=== PATIENT | male | born 1985 | race American Indian/Alaskan Native ===

== ENCOUNTER 2016-11-07 23:19 | Emergency (ER) | payer SELFPAY ==
[2016-11-08 00:04] LABS: Basophils % (Auto) 0.6 % (0.0-1.8); Eosinophils % (Auto) 8.3 % (0.0-4.3); Hematocrit 38.4 % (35.5-45.6); Mean Corpuscular HGB Conc 34 % (32-34); Mean Corpuscular Hemoglobin 33 pg (28-32); Mean Corpuscular Volume 96 fl (84-94); Platelet Count 137 K/mm3 (140-440); Red Cell Distribution Width 12.6 % (13.2-15.2); White Blood Count 6.4 K/mm3 (4.5-11.0)
[2016-11-08 00:18] LABS: Anion Gap 16 mmol/L; BUN/Creatinine Ratio 14.44; Blood Urea Nitrogen 13 mg/dL (9-20); Calcium 8.5 mg/dL (8.4-10.2); Carbon Dioxide 25 mmol/L (22-30); Glucose 142 mg/dL (75-100); Potassium 3.9 mmol/L (3.6-5.0); Sodium 140 mmol/L (137-145)
--- NOTE | 2016-11-08 09:12 | Emergency Department Report ---
ED Chest Pain HPI - General Chief Complaint: Chest Pain Stated Complaint: CHEST PAIN Time Seen by Provider: 11/08/16 09:10 Source: patient, RN notes reviewed Mode of arrival: Ambulatory Limitations: No Limitations - History of Present Illness Initial Comments: This is a 30-year-old male. He is previously unknown to me. He presents to the ER complaining of chest pain. The chest pain is left-sided. It has been present for 2 weeks. He reports that the pain is not associated with nausea, vomiting, diaphoresis or shortness of breath. There is no hematemesis or bright red blood per rectum. There is no posterior leg pain, no posterior leg swelling, patient does not take oral control contraceptives, and there are no recent trips or hospitalizations. He reports that the pain starts in the chest, and radiates down his left arm, left flank, left leg, and then rotates up in a counterclockwise direction, moving up his right leg, right flank, then his right arm. This is been intermittent for the past few weeks. It has no exacerbating or relieving factors. The patient smokes cigarettes, but does not use cocaine and has not taken aspirin in the past 7 days. MD Complaint: chest pain -: Gradual, week(s) Onset: during rest Pain Location: left chest Pain Radiation: other (as noted) Severity scale (0 -10): 7 Quality: aching Consistency: intermittent Improves With: nothing Worsens With: nothing re: denies: nausea, vomting, diaphoresis, dyspnea, sense of impending doom Other Symptoms: denies: cough, fever, syncope Treatments Prior to Arrival: none Aspirin use within the Past 7 Days: (0) No - Related Data On Oral Contraceptives: No Previous Rx's Medication Instructions Recorded Last Taken Type Acetaminophen [Tylenol Arthritis] 650 mg PO Q6HR PRN #30 tablet.er 11/08/16 Unknown Rx Famotidine [Pepcid] 20 mg PO QDAY #30 tablet 11/08/16 Unknown Rx Sucralfate [Carafate] 1 gm PO Q6HR #120 tablet 11/08/16 Unknown Rx Allergies Allergy/AdvReac Type Severity Reaction Status Date / Time No Known Allergies Allergy Verified 11/08/16 09:28 Heart Score - HEART Score History: Slightly suspicious EKG: Normal Age: < 45 Risk factors: No known risk factors Troponin: < normal limit HEART Score: 0 - Critical Actions Critical Actions: 0-3 pts:0.9-1.7%risk of adverse cardiac event.Candidate for discharge ED Review of Systems ROS: Stated complaint: CHEST PAIN Other details as noted in HPI Constitutional: denies: fever Eyes: denies: vision change ENT: denies: epistaxis Respiratory: denies: cough Cardiovascular: chest pain Gastrointestinal: denies: vomiting Genitourinary: as per HPI Musculoskeletal: as per HPI. denies: arthralgia, myalgia Skin: denies: lesions Neurological: denies: weakness Psychiatric: as per HPI ED Past Medical Hx - Past Medical History Previous Medical History?: No - Surgical History Past Surgical History?: No - Social History Smoking Status: Current Every Day Smoker Substance Use Type: Marijuana - Medications Home Medications: Home Medications Medication Instructions Recorded Confirmed Last Taken Type Acetaminophen [Tylenol Arthritis] 650 mg PO Q6HR PRN #30 tablet.er 11/08/16 Unknown Rx Famotidine [Pepcid] 20 mg PO QDAY #30 tablet 11/08/16 Unknown Rx Sucralfate [Carafate] 1 gm PO Q6HR #120 tablet 11/08/16 Unknown Rx ED Physical Exam - General Limitations: No Limitations General appearance: alert, in no apparent distress - Head Head exam: Present: atraumatic, normocephalic - Eye Eye exam: Present: normal appearance, EOMI. Absent: nystagmus - ENT ENT exam: Present: normal exam, normal orophraynx, mucous membranes moist, normal external ear exam - Neck Neck exam: Present: normal inspection, full ROM. Absent: tenderness, meningismus - Respiratory Respiratory exam: Present: normal lung sounds bilaterally. Absent: respiratory distress, wheezes, rales, rhonchi, stridor, chest wall tenderness, accessory muscle use, decreased breath sounds, prolonged expiratory - Cardiovascular Cardiovascular Exam: Present: regular rate, normal rhythm, normal heart sounds. Absent: bradycardia, tachycardia, irregular rhythm, systolic murmur, diastolic murmur, rubs, gallop - GI/Abdominal GI/Abdominal exam: Present: soft, normal bowel sounds. Absent: distended, tenderness, guarding, rebound, rigid, pulsatile mass - Rectal Rectal exam: Present: deferred - Extremities Exam Extremities exam: Present: normal inspection, full ROM, normal capillary refill , other (the compartments are soft. 2+ pulses are noted in 4 extremities.). Absent: tenderness, pedal edema, joint swelling, calf tenderness - Back Exam Back exam: Present: normal inspection, full ROM. Absent: tenderness, CVA tenderness (R), CVA tenderness (L), muscle spasm, paraspinal tenderness, vertebral tenderness - Neurological Exam Neurological exam: Present: alert, oriented X3, normal gait, other (Extraocular movements intact. Tongue midline. No facial droop. Facial sensation intact to light touch in the V1, V2, V3 distribution bilaterally. 5 and 5 strength in 4 extremities.. Sensation is intact to light touch in 4 extremities.). Absent : motor sensory deficit - Psychiatric Psychiatric exam: Present: anxious - Skin Skin exam: Present: warm, dry, intact, normal color. Absent: rash ED Course Vital Signs 11/07/16 11/08/16 11/08/16 23:37 05:03 08:28 Temperature 98.7 F Pulse Rate 79 71 Respiratory 20 20 12 Rate Blood Pressure 124/68 131/70 Blood Pressure 124/68 [Left] O2 Sat by Pulse 99 100 Oximetry 11/08/16 11/08/16 11/08/16 08:29 08:30 08:31 Temperature Pulse Rate 62 67 57 L Respiratory 12 14 13 Rate Blood Pressure 116/64 116/64 Blood Pressure [Left] O2 Sat by Pulse 100 100 100 Oximetry 11/08/16 11/08/16 11/08/16 08:33 08:35 08:37 Temperature Pulse Rate 59 L 62 Respiratory 13 16 15 Rate Blood Pressure 116/64 116/64 116/64 Blood Pressure [Left] O2 Sat by Pulse 100 100 100 Oximetry 11/08/16 11/08/16 11/08/16 08:39 08:41 08:43 Temperature Pulse Rate Respiratory 15 13 12 Rate Blood Pressure 116/64 116/64 116/64 Blood Pressure [Left] O2 Sat by Pulse 100 100 100 Oximetry 11/08/16 11/08/16 11/08/16 08:45 08:47 08:49 Temperature Pulse Rate 53 L 57 L 58 L Respiratory 13 12 14 Rate Blood Pressure 116/64 116/64 116/64 Blood Pressure [Left] O2 Sat by Pulse 100 100 100 Oximetry 11/08/16 11/08/16 11/08/16 08:51 08:53 08:55 Temperature Pulse Rate 54 L 53 L 56 L Respiratory 13 13 15 Rate Blood Pressure 116/64 116/64 116/64 Blood Pressure [Left] O2 Sat by Pulse 100 100 100 Oximetry 11/08/16 11/08/16 11/08/16 08:57 08:59 09:01 Temperature Pulse Rate 57 L 53 L 52 L Respiratory 15 14 14 Rate Blood Pressure 116/64 116/64 106/60 Blood Pressure [Left] O2 Sat by Pulse 100 100 98 Oximetry 11/08/16 11/08/16 09:03 09:05 Temperature Pulse Rate 55 L 51 L Respiratory 14 15 Rate Blood Pressure 106/60 106/60 Blood Pressure [Left] O2 Sat by Pulse 100 100 Oximetry THOMAS score - Thomas Score Age > 65: (0) No Aspirin use within the Past 7 Days: (0) No 3 or more CAD Risk Factors: (0) No 2 or more Angina events in past 24 hrs: (0) No Known CAD with more than 50% Stenosis: (0) No Elevated Cardiac Markers: (0) No ST Deviation Greater than 0.5mm: (0) No THOMAS Score: 0 ED Medical Decision Making - Lab Data Result diagrams: 11/07/16 23:45 11/07/16 23:45 Vital Signs 11/07/16 11/08/16 11/08/16 23:37 05:03 08:28 Temperature 98.7 F Pulse Rate 79 71 Respiratory 20 20 12 Rate Blood Pressure 124/68 131/70 Blood Pressure 124/68 [Left] O2 Sat by Pulse 99 100 Oximetry 11/08/16 11/08/16 11/08/16 08:29 08:30 08:31 Temperature Pulse Rate 62 67 57 L Respiratory 12 14 13 Rate Blood Pressure 116/64 116/64 Blood Pressure [Left] O2 Sat by Pulse 100 100 100 Oximetry 11/08/16 11/08/16 11/08/16 08:33 08:35 08:37 Temperature Pulse Rate 59 L 62 Respiratory 13 16 15 Rate Blood Pressure 116/64 116/64 116/64 Blood Pressure [Left] O2 Sat by Pulse 100 100 100 Oximetry 11/08/16 11/08/16 11/08/16 08:39 08:41 08:43 Temperature Pulse Rate Respiratory 15 13 12 Rate Blood Pressure 116/64 116/64 116/64 Blood Pressure [Left] O2 Sat by Pulse 100 100 100 Oximetry 11/08/16 11/08/16 11/08/16 08:45 08:47 08:49 Temperature Pulse Rate 53 L 57 L 58 L Respiratory 13 12 14 Rate Blood Pressure 116/64 116/64 116/64 Blood Pressure [Left] O2 Sat by Pulse 100 100 100 Oximetry 11/08/16 11/08/16 11/08/16 08:51 08:53 08:55 Temperature Pulse Rate 54 L 53 L 56 L Respiratory 13 13 15 Rate Blood Pressure 116/64 116/64 116/64 Blood Pressure [Left] O2 Sat by Pulse 100 100 100 Oximetry 11/08/16 11/08/16 11/08/16 08:57 08:59 09:01 Temperature Pulse Rate 57 L 53 L 52 L Respiratory 15 14 14 Rate Blood Pressure 116/64 116/64 106/60 Blood Pressure [Left] O2 Sat by Pulse 100 100 98 Oximetry 11/08/16 11/08/16 09:03 09:05 Temperature Pulse Rate 55 L 51 L Respiratory 14 15 Rate Blood Pressure 106/60 106/60 Blood Pressure [Left] O2 Sat by Pulse 100 100 Oximetry Labs 11/07/16 11/07/16 11/08/16 23:45 23:45 04:03 WBC 6.4 RBC 4.00 Hgb 13.0 Hct 38.4 MCV 96 H MCH 33 H MCHC 34 RDW 12.6 L Plt Count 137 L Lymph % (Auto) 36.5 H [place] % (Auto) 7.9 H Eos % (Auto) 8.3 H Baso % (Auto) 0.6 Lymph # 2.3 [place] # 0.5 Eos # 0.5 H Baso # 0.0 Seg Neutrophils % 46.7 Seg Neutrophils # 3.0 Sodium 140 Potassium 3.9 Chloride 103.0 Carbon Dioxide 25 Anion Gap 16 BUN 13 Creatinine 0.9 Estimated GFR > 60 BUN/Creatinine Ratio 14.44 Glucose 142 H Calcium 8.5 Troponin T < 0.010 < 0.010 11/08/16 05:31 WBC RBC Hgb Hct MCV MCH MCHC RDW Plt Count Lymph % (Auto) [place] % (Auto) Eos % (Auto) Baso % (Auto) Lymph # [place] # Eos # Baso # Seg Neutrophils % Seg Neutrophils # Sodium Potassium Chloride Carbon Dioxide Anion Gap BUN Creatinine Estimated GFR BUN/Creatinine Ratio Glucose Calcium Troponin T < 0.010 - EKG Data -: EKG Interpreted by Me EKG shows normal: sinus rhythm, axis, intervals, QRS complexes, ST-T waves - EKG Data Interpretation: no acute changes, normal EKG, unchanged when compared t 11/08/16 10:14 EKG #1 demonstrates normal sinus, 70 beats per minute, normal intervals, normal axis, morphologically consistent with STEMI, there is no prior for comparison. Repeat EKG demonstrates sinus bradycardia, 55 bpm, normal intervals, normal axis , not morphologically consistent with STEMI. High left ventricular voltages noted. - Radiology Data Radiology results: report reviewed, image reviewed - Medical Decision Making Differential diagnosis: GERD, gastritis, costochondritis, pneumonia, pericarditis, myocarditis, pneumothorax, hemothorax Assessment and plan: 30-year-old male with 2 weeks of atypical chest pain. He is afebrile with reassuring vital signs, has 2+ pulses in 4 extremities, and normal chest x-ray. Troponins negative 3. EKG morphologically within normal limits 2. Low risk by THOMAS score, low risk by heart score, low risk by well's criteria, perc negative. Patient at very low risk for major adverse cardiac event. Bedside ultrasound demonstrates normal wall motion, no large effusions. [place] improved after symptomatic therapy. It does not appear to be any emergent condition at this time, the patient is suitable to follow-up with an outpatient primary care doctor or conservation science officer. He will be discharged at this time. Critical care attestation.: If time is entered above; I have spent that time in minutes in the direct care of this critically ill patient, excluding procedure time. ED Disposition Clinical Impression: Chest pain Disposition: DC-01 TO HOME OR SELFCARE Is pt being admited?: No Does the pt Need Aspirin: No Condition: Good Instructions: Chest Pain (ED) Additional Instructions: Take pain medications as directed. Follow up with either primary care or cardiology within the next week. Return to the ER right away with new pain, worsened pain, migration of pain, fevers or chills, confusion, intractable nausea or vomiting, inability to tolerate liquid feeds, right red blood per rectum, black tarry stool. Prescriptions: Acetaminophen [Tylenol Arthritis] 650 mg PO Q6HR PRN #30 tablet.er PRN Reason: Pain Famotidine [Pepcid] 20 mg PO QDAY #30 tablet Sucralfate [Carafate] 1 gm PO Q6HR #120 tablet Referrals: PRIMARY CARE, [Primary Care Provider] - 3-5 Days JOANNE MELENDEZ MD [Staff Physician] - 3-5 Days CHRISTIE ROJAS MD [Staff Physician] - 3-5 Days PAULIE MITCHELL MD [Staff Physician] - 3-5 Days Forms: Work/School Release Form(ED)
[2016-11-08 09:15] VITALS: BP 106/60
[2016-11-08] MEDS ORDERED: ALUM-MAG HYDROX-SIMETH 200-200-20MG/5ML PO ONE (09:22)
[2016-11-08] MEDS ORDERED: TYLENOL PO ONE (09:22)
[2016-11-08] MEDS ORDERED: PEPCID PO ONE (09:22)
--- NOTE | 2016-11-08 09:41 | XRay Report ---
ROUTINE CHEST, TWO VIEWS: Chest pain. PA and lateral views demonstrate the heart and mediastinal contour to be of normal size and shape. The lungs are clear and fully expanded and the soft tissues and bony structures are normal. IMPRESSION: Normal study.
[2016-11-08] MEDS ORDERED: CARAFATE PO ONE (10:00)
== END 2016-11-08 10:47 | disposition home or self-care (01) ==
LOC: ED 23:19
DX: R07.9 Chest pain, unspecified (principal); F17.200 Nicotine dependence, unspecified, uncomplicated; F12.10 Cannabis abuse, uncomplicated
CPT/HCPCS: 36415; 71020; 80048; 84484; 85025; 93005; 93010; 99285

== ENCOUNTER 2016-11-30 00:23 | Emergency (ER) | payer SELFPAY ==
[2016-11-30] MEDS ORDERED: REGLAN ONE (00:44)
[2016-11-30] MEDS ORDERED: REGLAN IV ONE (00:54)
[2016-11-30 01:23] LABS: Basophils % (Auto) 0.4 % (0.0-1.8); Eosinophils % (Auto) 5.5 % (0.0-4.3); Hematocrit 41.2 % (35.5-45.6); Hemoglobin 13.7 gm/dl (11.8-15.2); Mean Corpuscular HGB Conc 33 % (32-34); Mean Corpuscular Hemoglobin 32 pg (28-32); Mean Corpuscular Volume 97 fl (84-94); Platelet Count 146 K/mm3 (140-440); Red Blood Count 4.25 M/mm3 (3.65-5.03); Red Cell Distribution Width 12.8 % (13.2-15.2); White Blood Count 9.3 K/mm3 (4.5-11.0)
[2016-11-30 01:38] LABS: Alanine Aminotransferase 10 units/L (7-56); Albumin/Globulin Ratio 1.4 %; Alkaline Phosphatase 47 units/L (35-129); Anion Gap 13 mmol/L; Blood Urea Nitrogen 12 mg/dL (9-20); Calcium 8.3 mg/dL (8.4-10.2); Carbon Dioxide 26 mmol/L (22-30); Chloride 104.7 mmol/L (98-107); Glucose 121 mg/dL (75-100); Lipase 32 units/L (13-60); Potassium 3.8 mmol/L (3.6-5.0); Sodium 140 mmol/L (137-145); Total Protein 6.9 g/dL (6.3-8.2)
[2016-11-30 02:57] LABS: Bilirubin,Urine NEG (Negative); Blood,Urine NEG (Negative); Ketones,Urine NEG (Negative); Leukocyte Esterase,Urine TR (Negative); Mucus,Urine 3+ /HPF; Nitrite,Urine NEG (Negative); Protein,Urine <15 mg/dL mg/dL (Negative)
[2016-11-30 04:38] VITALS: BP 116/71
--- NOTE | 2016-11-30 04:38 | Cat Scan Report ---
FINAL REPORT EXAM: CT HEAD/BRAIN WO CON HISTORY: headache, blurred vision, N V TECHNIQUE: CT imaging acquired through the head without intravenous contrast. Transaxial reformations are provided. PRIORS: None. FINDINGS: The ventricles, cisterns and sulci are normal. No intraparenchymal or extra-axial mass, hemorrhage, or mass effect. Lopez and white-matter differentiation is normal. Normal spherical shape of the globes. Paranasal sinuses and mastoid air cells are without significant abnormality. No skull or facial fracture visualized. IMPRESSION: No acute intracranial abnormality.
[2016-11-30] MEDS ORDERED: TORADOL ONE (04:42)
[2016-11-30] MEDS ORDERED: TORADOL IV ONE (04:49)
[2016-11-30] MEDS ORDERED: NACL 0.9% 1000 ML 1,000 ML IV ONE (07:20)
[2016-11-30] MEDS ORDERED: ROCEPHIN/NS 1 GM/50 ML 1 GM/50 ML BAG IV ONE (07:20)
--- NOTE | 2016-11-30 07:59 | Cat Scan Report ---
FINAL REPORT EXAM: CT ABDOMEN PELVIS WO CON HISTORY: lower abdominal pain TECHNIQUE: CT images obtained through the Abdomen and Pelvis without contrast. Transaxial,coronal and sagittal reformats are provided. PRIORS: None. FINDINGS: Imaged intrathoracic contents are unremarkable. Kidneys are normal in size, axis and position. No hydronephrosis or nephrolithiasis. The ureters are normal in course and caliber. No stones are seen within the urinary bladder. The liver, gallbladder, pancreas, spleen, and adrenal glands demonstrate a normal noncontrast appearance. Hollow enteric organs are normal in course and caliber. Appendix is normal. No intra-abdominal free air/fluid or lymphadenopathy. Aorta is normal in course and caliber. Superficial soft tissues are unremarkable. No acute or aggressive appearing skeletal findings. IMPRESSION: No CT evidence of obstructive uropathy or other acute abdominal or pelvic finding.
--- NOTE | 2016-11-30 08:26 | Emergency Department Report ---
ED General Adult HPI - General Chief complaint: Abdominal Pain Stated complaint: HEADACHE Time Seen by Provider: 11/30/16 07:09 Source: patient Mode of arrival: Ambulatory Limitations: No Limitations - History of Present Illness Initial comments: Patient comes into the ER today with multiple complaints. Patient complaining of lower back pain for the past month. Denies any obvious injury but does state that the pain is worse with movement. Patient states the pain sometimes seems to radiate down into bilateral buttocks and upper posterior legs. Patient also complaining of bad of lower abdominal pain bilaterally. Patient denies any dysuria, penile discharge. Patient states that he started having some diarrhea yesterday. Patient still able to eat and drink without difficulties. Patient notes that there does seem to be a little correlation with when his belly is hurting that his back is hurting as well. Patient also complaining of a headache. Patient denies any vision changes, hemoptysis, cough. Patient states that he was unable to work last night. Severity scale (0 -10): 6 - Related Data Previous Rx's Medication Instructions Recorded Last Taken Type Acetaminophen [Tylenol Arthritis] 650 mg PO Q6HR PRN #30 tablet.er 11/08/16 1 Day Ago Rx Famotidine [Pepcid] 20 mg PO QDAY #30 tablet 11/08/16 1 Day Ago Rx Sucralfate [Carafate] 1 gm PO Q6HR #120 tablet 11/08/16 1 Day Ago Rx Azithromycin [Zithromax TAB] 500 mg PO QDAY #5 tablet 11/30/16 Unknown Rx Cyclobenzaprine HCl [Flexeril 5 MG 5 mg PO TID #15 tab 11/30/16 Unknown Rx TAB] Promethazine /Codeine 5 ml PO Q6H PRN #90 ml 11/30/16 Unknown Rx [Phenergan/Codeine 6.25-10 mg/5Ml] Allergies Allergy/AdvReac Type Severity Reaction Status Date / Time No Known Allergies Allergy Verified 11/08/16 09:28 ED Review of Systems ROS: Stated complaint: HEADACHE Other details as noted in HPI Constitutional: denies: chills, fever Eyes: denies: eye pain, eye discharge, vision change ENT: denies: ear pain, throat pain Respiratory: denies: cough, shortness of breath, wheezing Cardiovascular: denies: chest pain, palpitations Endocrine: no symptoms reported Gastrointestinal: abdominal pain, diarrhea. denies: nausea, vomiting, constipation, hematemesis, melena, hematochezia Genitourinary: denies: urgency, dysuria, frequency, hematuria, discharge, testicular pain Musculoskeletal: back pain. denies: joint swelling, arthralgia Skin: denies: rash, lesions Neurological: headache. denies: weakness, paresthesias Psychiatric: denies: anxiety, depression Hematological/Lymphatic: denies: easy bleeding, easy bruising ED Past Medical Hx - Past Medical History Previous Medical History?: Yes Hx Heart Attack/AMI: Yes Additional medical history: Stomach Pain - Surgical History Past Surgical History?: No - Social History Smoking Status: Current Every Day Smoker Substance Use Type: Alcohol, Marijuana - Medications Home Medications: Home Medications Medication Instructions Recorded Confirmed Last Taken Type Acetaminophen [Tylenol Arthritis] 650 mg PO Q6HR PRN #30 tablet.er 11/08/16 1 Day Ago Rx Famotidine [Pepcid] 20 mg PO QDAY #30 tablet 11/08/16 11/30/16 1 Day Ago Rx Sucralfate [Carafate] 1 gm PO Q6HR #120 tablet 11/08/16 11/30/16 1 Day Ago Rx Azithromycin [Zithromax TAB] 500 mg PO QDAY #5 tablet 11/30/16 Unknown Rx Cyclobenzaprine HCl [Flexeril 5 MG 5 mg PO TID #15 tab 11/30/16 Unknown Rx TAB] Promethazine /Codeine 5 ml PO Q6H PRN #90 ml 11/30/16 Unknown Rx [Phenergan/Codeine 6.25-10 mg/5Ml] ED Physical Exam - General Limitations: No Limitations General appearance: alert, in no apparent distress - Head Head exam: Present: atraumatic, normocephalic, normal inspection - Eye Eye exam: Present: normal appearance, PERRL, EOMI. Absent: conjunctival injection, periorbital swelling, periorbital tenderness Pupils: Present: normal accommodation - ENT ENT exam: Present: normal exam, normal orophraynx, mucous membranes moist, TM's normal bilaterally, normal external ear exam - Neck Neck exam: Present: normal inspection, tenderness (mild right greater than left posterior trapezius and muscle tenderness. No vertebral body tenderness noted.) , full ROM. Absent: meningismus, lymphadenopathy, thyromegaly - Respiratory Respiratory exam: Present: normal lung sounds bilaterally. Absent: respiratory distress, chest wall tenderness, accessory muscle use, decreased breath sounds - Cardiovascular Cardiovascular Exam: Present: regular rate, normal rhythm, normal heart sounds. Absent: systolic murmur, diastolic murmur, rubs, gallop - GI/Abdominal GI/Abdominal exam: Present: soft, tenderness (right lower and left lower abdominal tenderness), hyperactive bowel sounds. Absent: distended, guarding, rebound, organomegaly, mass - Rectal Rectal exam: Present: deferred - Extremities Exam Extremities exam: Present: normal inspection, normal capillary refill. Absent: pedal edema, joint swelling, calf tenderness - Back Exam Back exam: Present: normal inspection, tenderness (lower lumbar lateral tenderness over the muscle tissue as well as bilateral SI joints.), paraspinal tenderness. Absent: CVA tenderness (R), CVA tenderness (L), vertebral tenderness, rash noted - Neurological Exam Neurological exam: Present: alert, oriented X3, CN II-XII intact, normal gait, reflexes normal. Absent: motor sensory deficit - Psychiatric Psychiatric exam: Present: normal affect, normal mood - Skin Skin exam: Present: warm, dry, intact, normal color. Absent: rash ED Course Vital Signs 11/30/16 11/30/16 11/30/16 00:55 04:36 05:19 Temperature 98.1 F 98.0 F Pulse Rate 92 H 67 Respiratory 16 16 Rate Blood Pressure 115/78 116/71 O2 Sat by Pulse 99 100 Oximetry 11/30/16 08:31 Temperature Pulse Rate Respiratory 16 Rate Blood Pressure O2 Sat by Pulse Oximetry ED Medical Decision Making - Lab Data Result diagrams: 11/30/16 00:50 11/30/16 00:50 Lab Results 11/30/16 11/30/16 11/30/16 Range/Units 00:50 00:50 02:40 WBC 9.3 (4.5-11.0) K/mm3 RBC 4.25 (3.65-5.03) M/mm3 Hgb 13.7 (11.8-15.2) gm/dl Hct 41.2 (35.5-45.6) % MCV 97 H (84-94) fl MCH 32 (28-32) pg MCHC 33 (32-34) % RDW 12.8 L (13.2-15.2) % Plt Count 146 (140-440) K/mm3 Lymph % (Auto) 23.3 (13.4-35.0) % [place] % (Auto) 6.3 (0.0-7.3) % Eos % (Auto) 5.5 H (0.0-4.3) % Baso % (Auto) 0.4 (0.0-1.8) % Lymph # 2.2 (1.2-5.4) K/mm3 [place] # 0.6 (0.0-0.8) K/mm3 Eos # 0.5 H (0.0-0.4) K/mm3 Baso # 0.0 (0.0-0.1) K/mm3 Seg Neutrophils % 64.5 (40.0-70.0) % Seg Neutrophils # 6.0 (1.8-7.7) K/mm3 Sodium 140 (137-145) mmol/L Potassium 3.8 (3.6-5.0) mmol/L Chloride 104.7 (98-107) mmol/L Carbon Dioxide 26 (22-30) mmol/L Anion Gap 13 mmol/L BUN 12 (9-20) mg/dL Creatinine 1.0 (0.8-1.5) mg/dL Estimated GFR > 60 ml/min BUN/Creatinine Ratio 12.00 % Glucose 121 H (75-100) mg/dL Calcium 8.3 L (8.4-10.2) mg/dL Total Bilirubin 0.50 (0.1-1.2) mg/dL AST 15 (5-40) units/L ALT 10 (7-56) units/L Alkaline Phosphatase 47 (35-129) units/L Total Protein 6.9 (6.3-8.2) g/dL Albumin 4.0 (3.9-5) g/dL Albumin/Globulin Ratio 1.4 % Lipase 32 (13-60) units/L Urine Color Yellow (Yellow) Urine Turbidity Clear (Clear) Urine pH 6.0 (5.0-7.0) Ur Specific [place] 1.028 (1.003-1.030) Urine Protein <15 mg/dl (Negative) mg/dL Urine Glucose (UA) Neg (Negative) mg/dL Urine Ketones Neg (Negative) mg/dL Urine Blood Neg (Negative) Urine Nitrite Neg (Negative) Urine Bilirubin Neg (Negative) Urine Urobilinogen 2.0 (<2.0) mg/dL Ur Leukocyte Esterase Tr (Negative) Urine WBC (Auto) 5.0 (0.0-6.0) /HPF Urine RBC (Auto) 5.0 (0.0-6.0) /HPF U Epithel Cells (Auto) < 1.0 (0-13.0) /HPF Calcium Oxalate Crystal 2+ Urine Mucus 3+ /HPF - Radiology Data Radiology results: report reviewed CT head without contrast: No acute pathology noted. CT abdomen/pelvis without contrast: No CT evidence of obstructive uropathy or other acute abdominal or pelvic findings. - Medical Decision Making Patient is nontoxic and hemodynamically stable. The patient might possibly be suffering from on multiple issues. Patient's back pain seems to be more musculoskeletal in nature. I believe the patient's abdominal discomfort may be related to UTI. Patient was given IV fluids, Toradol, Rocephin here in the ER. Patient states that the Toradol did seem to help some with his headache. I will continue patient on outpatient antibiotics as well as some medications to settle his stomach. I encouraged patient to continue drinking plenty of fluids and patient is to follow-up with his primary care doctor to ensure resolution of urinary tract infection. Patient is in agreement with treatment plan patient is stable for discharge. Critical care attestation.: If time is entered above; I have spent that time in minutes in the direct care of this critically ill patient, excluding procedure time. ED Disposition Clinical Impression: Low back pain, UTI (urinary tract infection), Diarrhea, Headache Disposition: DC- TO HOME OR SELFCARE Is pt being admited?: No Does the pt Need Aspirin: No Condition: Good Instructions: Urinary Tract Infection in Men (ED), Gastroenteritis (ED), Low Back Strain (ED) Prescriptions: Azithromycin [Zithromax TAB] 500 mg PO QDAY #5 tablet Cyclobenzaprine HCl [Flexeril 5 MG TAB] 5 mg PO TID #15 tab Promethazine /Codeine [Phenergan/Codeine 6.25-10 mg/5Ml] 5 ml PO Q6H PRN #90 ml PRN Reason: Diarrhea Referrals: PRIMARY CARE, [Primary Care Provider] - 3-5 Days [facility] [Outside] - 3-5 Days Forms: Work/School Release Form(ED) Time of Disposition: 09:48
== END 2016-11-30 10:02 | disposition home or self-care (01) ==
LOC: ED 00:23
DX: M54.5 Low back pain (principal); N39.0 Urinary tract infection, site not specified; R19.7 Diarrhea, unspecified; R51 Headache; F17.200 Nicotine dependence, unspecified, uncomplicated; I25.2 Old myocardial infarction; F12.10 Cannabis abuse, uncomplicated
CPT/HCPCS: 36415; 70450; 74176; 80053; 81001; 83690; 85025; 96365; 96375; 99284; J0696; J1885; J2765; J7030

== ENCOUNTER 2016-12-21 02:18 | Emergency (ER) | payer OTHER ==
[2016-12-21 02:39] LABS: Basophils % (Auto) 0.5 % (0.0-1.8); Hematocrit 41.6 % (35.5-45.6); Hemoglobin 14.2 gm/dl (11.8-15.2); Mean Corpuscular HGB Conc 34 % (32-34); Mean Corpuscular Hemoglobin 33 pg (28-32); Mean Corpuscular Volume 96 fl (84-94); Platelet Count 133 K/mm3 (140-440); Red Blood Count 4.34 M/mm3 (3.65-5.03); Red Cell Distribution Width 12.8 % (13.2-15.2); White Blood Count 8.2 K/mm3 (4.5-11.0)
[2016-12-21 03:08] LABS: Alanine Aminotransferase 10 units/L (7-56); Albumin 4.2 g/dL (3.9-5); Albumin/Globulin Ratio 1.6 %; Alkaline Phosphatase 49 units/L (35-129); Anion Gap 18 mmol/L; BUN/Creatinine Ratio 14.44; Blood Urea Nitrogen 13 mg/dL (9-20); Calcium 8.9 mg/dL (8.4-10.2); Carbon Dioxide 24 mmol/L (22-30); Chloride 102.1 mmol/L (98-107); Glucose 109 mg/dL (75-100); Lipase 39 units/L (13-60); Potassium 3.7 mmol/L (3.6-5.0); Sodium 140 mmol/L (137-145); Total Protein 6.9 g/dL (6.3-8.2)
[2016-12-21 03:40] LABS: Bilirubin,Urine NEG (Negative); Blood,Urine NEG (Negative); Ketones,Urine NEG (Negative); Leukocyte Esterase,Urine NEG (Negative); Mucus,Urine FEW /HPF; Nitrite,Urine NEG (Negative); Protein,Urine <15 mg/dL mg/dL (Negative); RBC,Urine < 1.0 /HPF (0.0-6.0); Urobilinogen,Urine < 2.0 mg/dL (<2.0); WBC,Urine < 1.0 /HPF (0.0-6.0)
--- NOTE | 2016-12-21 09:39 | Emergency Department Report ---
ED Abdominal Pain HPI - General Chief Complaint: Abdominal Pain Stated Complaint: ABD PAIN, PAIN IN FEET Time Seen by Provider: 12/21/16 07:21 Source: patient Mode of arrival: Ambulatory Limitations: No Limitations - History of Present Illness Initial Comments: Patient stated that his been having epigastric pain on and off for the last 2 weeks he was seen here 2 weeks ago for the same complaint and had a full workup done including a CT abdomen and pelvis will come back negative MD Complaint: abdominal pain -: Gradual Location: diffuse Severity scale (0 -10): 8 Quality: burning - Related Data Previous Rx's Medication Instructions Recorded Last Taken Type Dicyclomine [Bentyl] 10 mg PO QID #30 capsule 12/21/16 Unknown Rx Esomeprazole Magnesium [NexIUM 20 mg PO DAILY #30 capsule. 12/21/16 Unknown Rx 24Hr] Allergies Allergy/AdvReac Type Severity Reaction Status Date / Time No Known Allergies Allergy Verified 11/08/16 09:28 ED Review of Systems ROS: Stated complaint: ABD PAIN, PAIN IN FEET Other details as noted in HPI Comment: All other systems reviewed and negative Constitutional: no symptoms reported. denies: chills, fever Respiratory: denies: cough, shortness of breath Cardiovascular: denies: chest pain Gastrointestinal: denies: nausea, vomiting ED Past Medical Hx - Past Medical History Previous Medical History?: Yes Hx Heart Attack/AMI: Yes Additional medical history: Stomach Pain. Back pain - Surgical History Past Surgical History?: Yes - Social History Smoking Status: Heavy Tobacco Smoker Substance Use Type: Alcohol, Marijuana - Medications Home Medications: Home Medications Medication Instructions Recorded Confirmed Last Taken Type Dicyclomine [Bentyl] 10 mg PO QID #30 capsule 12/21/16 Unknown Rx Esomeprazole Magnesium [NexIUM 20 mg PO DAILY #30 capsule. 12/21/16 Unknown Rx 24Hr] ED Physical Exam - General Limitations: No Limitations General appearance: alert, in no apparent distress - Neck Neck exam: Present: normal inspection. Absent: meningismus - Respiratory Respiratory exam: Present: normal lung sounds bilaterally. Absent: wheezes, rales - Cardiovascular Cardiovascular Exam: Present: regular rate, normal rhythm, normal heart sounds - GI/Abdominal GI/Abdominal exam: Present: soft. Absent: distended, tenderness, guarding, rebound, rigid, normal bowel sounds, diminished bowel sounds, hyperactive bowel sounds, hypoactive bowel sounds, organomegaly, mass, bruit, pulsatile mass, hernia - Back Exam Back exam: Present: normal inspection - Neurological Exam Neurological exam: Present: alert, oriented X3, CN II-XII intact - Skin Skin exam: Present: warm, normal color ED Course Vital Signs 12/21/16 12/21/16 12/21/16 02:19 05:45 06:08 Temperature 98.1 F 98.6 F Pulse Rate 87 65 63 Respiratory 20 16 11 L Rate Blood Pressure 120/73 116/67 Blood Pressure 143/89 [Right] O2 Sat by Pulse 98 99 100 Oximetry 12/21/16 12/21/16 06:14 07:14 Temperature 97.8 F Pulse Rate 72 Respiratory 17 12 Rate Blood Pressure Blood Pressure 120/64 [Right] O2 Sat by Pulse 100 100 Oximetry ED Medical Decision Making - Lab Data Result diagrams: 12/21/16 02:29 12/21/16 02:29 Critical care attestation.: If time is entered above; I have spent that time in minutes in the direct care of this critically ill patient, excluding procedure time. ED Disposition Clinical Impression: Abdominal pain Disposition: DC-01 TO HOME OR SELFCARE Is pt being admited?: No Condition: Stable Instructions: Gastritis (ED), Plantar Fasciitis (ED) Referrals: PRIMARY CARE, [Primary Care Provider] - 3-5 Days
[2016-12-21 09:59] VITALS: BP 110/61
== END 2016-12-21 09:50 | disposition home or self-care (01) ==
LOC: ED 02:18
DX: R10.13 Epigastric pain (principal); I25.2 Old myocardial infarction; F17.200 Nicotine dependence, unspecified, uncomplicated; F12.10 Cannabis abuse, uncomplicated; R10.84 Generalized abdominal pain
CPT/HCPCS: 36415; 80053; 81001; 83690; 85025; 99284

== ENCOUNTER 2016-12-24 01:53 | Emergency (ER) | payer SELFPAY ==
--- NOTE | 2016-12-24 07:09 | Cat Scan Report ---
FINAL REPORT EXAM: CT HEAD/BRAIN W/O CONTRAST. HISTORY: Status post fall, head hit on concrete. Nausea and vomiting. TECHNIQUE: Unenhanced axial CT images of the brain were obtained. Comparison is made with prior study 11/30/2016. FINDINGS: The cortical sulci and ventricles are within normal limits for patient's age. There is no extra-axial fluid collection, mass, mass effect, midline shift, hydrocephalus, or acute intracranial hemorrhage. Again noted is minimal sinus mucosal thickening along the anterior aspects of the bilateral sphenoid sinuses, and within scattered bilateral ethmoid air cells. The remainder of the visualized paranasal sinuses and mastoid air cells are clear. There is no skull fracture or other osseous abnormality. IMPRESSION: No fracture or acute intracranial abnormality.
[2016-12-24] MEDS ORDERED: TORADOL IM ONE (10:42)
--- NOTE | 2016-12-24 10:46 | Emergency Department Report ---
ED Fall HPI - General Chief Complaint: Head Injury Stated Complaint: HILL/VOMITING Time Seen by Provider: 12/24/16 10:36 Source: patient Mode of arrival: Ambulatory - History of Present Illness Initial Comments: Patient stated that he slipped yesterday because it was raining and he fell hitting his head denied any loss of consciousness no weakness numbness or tingling sensation. Complaining of headache now. No other injury. MD Complaint: fall -: Sudden, Last night Fall From: standing Fall Witnessed: no Place Fall Occurred: street Loss of Consciousness: none Prolonged Down Time?: no Symptoms Prior to Fall: none Location: head Quality: sharp Context: tripped/slipped Associated Symptoms: headache. denies: neck pain, numbness, weakness, chest paint, shortness of breath, abdominal pain, hematuria, unable to walk, lightheaded, vertigo - Related Data Previous Rx's Medication Instructions Recorded Last Taken Type Dicyclomine [Bentyl] 10 mg PO QID #30 capsule 12/21/16 Unknown Rx Esomeprazole Magnesium [NexIUM 20 mg PO DAILY #30 capsule. 12/21/16 Unknown Rx 24Hr] Naproxen [Naprosyn] 500 mg PO BID #14 tablet 12/24/16 Unknown Rx Ondansetron [Zofran Odt] 4 mg PO Q8HR PRN #14 tab.rapdis 12/24/16 Unknown Rx Allergies Allergy/AdvReac Type Severity Reaction Status Date / Time No Known Allergies Allergy Verified 11/08/16 09:28 ED Review of Systems ROS: Stated complaint: HILL/VOMITING Other details as noted in HPI Comment: All other systems reviewed and negative Constitutional: denies: chills, fever Respiratory: denies: cough, shortness of breath Cardiovascular: denies: chest pain Gastrointestinal: nausea. denies: vomiting, diarrhea, constipation Neurological: headache. denies: weakness, numbness ED Past Medical Hx - Past Medical History Previous Medical History?: Yes Hx Heart Attack/AMI: Yes Hx GERD: Yes Additional medical history: Stomach Pain. Back pain - Surgical History Past Surgical History?: No - Social History Smoking Status: Current Every Day Smoker Substance Use Type: Marijuana - Medications Home Medications: Home Medications Medication Instructions Recorded Confirmed Last Taken Type Dicyclomine [Bentyl] 10 mg PO QID #30 capsule 12/21/16 Unknown Rx Esomeprazole Magnesium [NexIUM 20 mg PO DAILY #30 capsule. 12/21/16 Unknown Rx 24Hr] Naproxen [Naprosyn] 500 mg PO BID #14 tablet 12/24/16 Unknown Rx Ondansetron [Zofran Odt] 4 mg PO Q8HR PRN #14 tab.rapdis 12/24/16 Unknown Rx ED Physical Exam - General Limitations: No Limitations General appearance: alert, in no apparent distress - Head Head exam: Present: atraumatic, normocephalic - Eye Eye exam: Present: normal appearance, PERRL Pupils: Present: normal accommodation - ENT ENT exam: Present: normal exam, normal orophraynx, mucous membranes moist - Neck Neck exam: Present: normal inspection, full ROM. Absent: tenderness, meningismus - Respiratory Respiratory exam: Present: normal lung sounds bilaterally. Absent: respiratory distress, wheezes, rales, rhonchi, stridor, chest wall tenderness, accessory muscle use, decreased breath sounds - Cardiovascular Cardiovascular Exam: Present: regular rate, normal rhythm, normal heart sounds - GI/Abdominal GI/Abdominal exam: Present: soft. Absent: distended, tenderness, guarding, rigid - Extremities Exam Extremities exam: Present: normal inspection, full ROM. Absent: tenderness, normal capillary refill - Back Exam Back exam: Present: normal inspection, full ROM. Absent: tenderness, CVA tenderness (R), CVA tenderness (L) - Neurological Exam Neurological exam: Present: alert, oriented X3, CN II-XII intact - Skin Skin exam: Present: warm, intact, normal color ED Course Vital Signs 12/24/16 02:02 Temperature 98.1 F Pulse Rate 86 Respiratory 18 Rate Blood Pressure 108/69 O2 Sat by Pulse 98 Oximetry - Reevaluation(s) Reevaluation #1: 12/24/16 10:46 Patient is stable vital signs stable we will treat as Toradol for headache and advised to follow-up with his primary care physician will give him a printout for headache and for head injury. CT scan of the brain is negative. Critical care attestation.: If time is entered above; I have spent that time in minutes in the direct care of this critically ill patient, excluding procedure time. ED Disposition Clinical Impression: Head injury Disposition: DC-01 TO HOME OR SELFCARE Is pt being admited?: No Condition: Stable Instructions: Minor Head Injury (ED) Referrals: PRIMARY CARE, [Primary Care Provider] - 3-5 Days
[2016-12-24 11:10] VITALS: BP 110/68
== END 2016-12-24 11:10 | disposition home or self-care (01) ==
LOC: ED 01:53
DX: S09.90XA Unspecified injury of head, initial encounter (principal); I25.2 Old myocardial infarction; K21.9 Gastro-esophageal reflux disease without esophagitis; F17.210 Nicotine dependence, cigarettes, uncomplicated; F12.10 Cannabis abuse, uncomplicated; W01.0XXA Fall on same level from slipping, tripping and stumbling without subsequent striking against object, initial encounter; Y93.89 Activity, other specified; Y92.89 Other specified places as the place of occurrence of the external cause; Y99.8 Other external cause status
CPT/HCPCS: 70450; 99283